=== PATIENT | male | born 1965 | race Caucasian/White ===

== ENCOUNTER 2022-01-31 16:58 | Inpatient (IN) | payer OTHER, SELFPAY ==
[2022-01-31 16:59] VITALS: BP 154/96; PULSE 80; RESP 14; TEMP 36.3; O2SAT 100; BMI 44.4
--- NOTE | 2022-01-31 17:42 | CT_ITS ---
INDICATION: abscess EXAMINATION: CT Pelvis W/ Contrast Injection TECHNIQUE: Helically acquired images were obtained of the pelvis after IV contrast. A radiation dose optimization technique was used for this scan. IV Contrast dosage and agent: IV 100mL [id number] Oral contrast: None. COMPARISON: None. FINDINGS: Vasculature: Unremarkable GI Tract: Unremarkable Lymphadenopathy: Right inguinal lymphadenopathy measuring up to 2.7 cm. Peritoneum: No ascites. Bladder: Unremarkable Reproductive organs: Right-sided hydrocele. Bones/Soft tissues: There are diffuse degenerative changes of the spine. There is subcutaneous fat stranding and edema in the right inguinal region. No focal fluid collection. CT/Pelvis WITH IV Contrast IMPRESSION: Cellulitis of the right inguinal region with no abscess. Right hydrocele. Electronically Signed: Vincent Alejandro MD at 18:36 EDT ,
--- NOTE | 2022-01-31 17:51 | EX.ED.DYSGE1 ---
HPI <KIAH Hoffmann - Last Filed: 01/31/22 18:47> History of Present Illness Chief Complaint: Abscess Narrative Narrative: 56-year-old male with history of hypertension presents emerged part with abscess to his right upper leg, groin. Patient states 1 week ago he noticed a spot that was draining from his right upper leg, he states that this was from something rubbing on his pants. Over the last 3 to 4 days, patient states that has been draining, the redness has gotten worse to his lower abdomen radiating to his mid abdomen to his suprapubic area. Patient does have drainage from the wound, it is brown, yellow in color. Patient has induration throughout his entire lower right lower abdomen. Cellulitis around the area. PFSH <KIAH Hoffmann - Last Filed: 01/31/22 18:47> [facility] Medical History (Updated 01/31/22 @ 19:24 by Carmen Mosley) CPAP (continuous positive airway pressure) dependence Hypertension Sleep apnea Home Medications amlodipine 2.5 mg tablet 2.5 mg PO DAILY bp 01/31/22 [History Last Taken 01/31/22] carvedilol 12.5 mg tablet 12.5 mg PO BID bp 01/31/22 [History Last Taken 01/31/22] Allergy/AdvReac Type Severity Reaction Status Date / Time No Known Allergies Allergy Verified 01/31/22 17:02 Social History Smoking Status: Never smoker ROS <KIAH Hoffmann - Last Filed: 01/31/22 18:47> ROS ED ROS Narrative Constitutional: Negative for fever, chills, weight loss, weakness Eyes: Negative for vision loss, vision change, double vision ENT: Negative for any sore throat, ear pain, congestion Cardiovascular: Negative for any chest pain, tightness, palpitations Respiratory: Negative for any cough, sputum production, hemoptysis, dyspnea, dyspnea on exertion, orthopnea Gastrointestinal: Negative for any abdominal pain, nausea, vomiting, diarrhea, constipation, blood in stool, blood in vomit : Negative for any urinary frequency, dysuria, retention, blood in urine Muscle skeletal: Negative for any muscle joint pain, stiffness, myalgias, arthralgias, neck pain, back pain Neurological: Negative for any headache, syncope, numbness or tingling, dizziness Skin: Negative for any rashes, lumps, itching, abrasions, lacerations. Patient has abscess to the right upper thigh, in the crease of his abdomen. Patient has gross drainage in this area brown to yellow. Patient does have induration and cellulitis around this area, the cellulitis extends through the right lower quadrant of his abdomen to his suprapubic area just above his groin. The area of his right lower abdomen is very indurated, no obvious abscess formation however it is warm to the touch, cellulitic. This appears to be pretty extensive cellulitis to his right lower abdomen, right groin area. Psychiatric: Negative for any depression, anxiety, stress, suicidal ideation, homicidal ideation Hematologic: Negative for any easy bruising, excessive bruising, easy bleeding Allergies: Negative for any eczema, hives, rash EXAM <KIAH Hoffmann - Last Filed: 01/31/22 18:47> Physical Exam Const Vital Signs: 01/31/22 16:59 01/31/22 18:59 Temperature 97.3 F L 97.2 F L Temperature Source Temporal Temporal Pulse Rate 80 79 Respiratory Rate 14 15 Blood Pressure 154/96 H 144/77 H Blood Pressure Mean 115 99 Pulse Ox 100 98 Oxygen Delivery Method Room Air Room Air <Dr. Jelani Gonzalez DO - Last Filed: 02/01/22 01:04> Physical Exam Const Vital Signs: 01/31/22 16:59 01/31/22 18:59 Temperature 97.3 F L 97.2 F L Temperature Source Temporal Temporal Pulse Rate 80 79 Respiratory Rate 14 15 Blood Pressure 154/96 H 144/77 H Blood Pressure Mean 115 99 Pulse Ox 100 98 Oxygen Delivery Method Room Air Room Air MDM <KIAH Hoffmann - Last Filed: 01/31/22 18:47> [facility] Lab Data Labs: Laboratory Results - last 24 hr 01/31/22 01/31/22 01/31/22 18:07 18:07 18:07 WBC 20.0 H RBC 4.30 L Hgb 13.0 Hct 39.4 L MCV 91.6 MCH 30.2 MCHC 33.0 RDW Std Deviation 47.5 H RDW Coeff of Nathalia 14.1 Plt Count 302 MPV 10.0 Immature Gran % (Auto) 1.600 H Neut % (Auto) 79.5 H Lymph % (Auto) 9.9 L Haines % (Auto) 6.7 Eos % (Auto) 1.7 Baso % (Auto) 0.6 Absolute Neuts (auto) 15.9 H Absolute Lymphs (auto) 1.97 Nucleated RBC % 0 Sodium 134 L Potassium 3.5 Chloride 98 Carbon Dioxide 26.0 Anion Gap 10 BUN 32 H Creatinine 1.22 Estim Creat Clear Calc 82.02 Est GFR (MDRD) Af Amer 79 Est GFR (MDRD) Non-Af 65 BUN/Creatinine Ratio 26.2 H Glucose 103 Hemoglobin A1c Lactic Acid 0.7 Calcium 9.0 01/31/22 19:17 WBC RBC Hgb Hct MCV MCH MCHC RDW Std Deviation RDW Coeff of Nathalia Plt Count MPV Immature Gran % (Auto) Neut % (Auto) Lymph % (Auto) Haines % (Auto) Eos % (Auto) Baso % (Auto) Absolute Neuts (auto) Absolute Lymphs (auto) Nucleated RBC % Sodium Potassium Chloride Carbon Dioxide Anion Gap BUN Creatinine Estim Creat Clear Calc Est GFR (MDRD) Af Amer Est GFR (MDRD) Non-Af BUN/Creatinine Ratio Glucose Hemoglobin A1c 6.1 H Lactic Acid Calcium Radiography Diagnostic Testing: Clinical Impression(s) from Imaging Studies Pelvis CT 01/31/22 17:42 IMPRESSION: Cellulitis of the right inguinal region with no abscess. Right hydrocele. Electronically Signed: Vincent Alejandro MD at 18:36 EDT , Treatment and Re-Evaluation Narrative: Patient presents to the emergency department for abscess to the right upper leg, right abdomen. Patient did receive a septic work-up secondary to the extension of the abscess, cellulitis as well as failing outpatient therapy of Augmentin. Patient does not meet SIRS criteria. Patient will receive basic laboratory values with blood cultures as well as lactic acid, IV Zosyn, vancomycin as well as a CT scan of the pelvis with IV contrast. The patient will need admitted to the hospital for abscess, cellulitis of the right lower abdomen, right upper leg. Patient's laboratory values show a leukocytosis white blood count of 20,000, patient's chemistries were unremarkable. Patient's lactic acid was negative. Patient did receive a CT scan of the pelvis this showed cellulitis to the right inguinal region with no abscess. The patient will need to be admitted to the hospital for cellulitis, abscess to the right inguinal area. He will be admitted to 's service. Patient stable for admission. <Dr. Jelani Gonzalez, DO - Last Filed: 02/01/22 01:04> [facility] MDM Narrative Medical decision making narrative: Attending note: Patient seen and evaluated with environmental services aide. I perform my own [id number] evaluation. I agree with the plan of work-up. Worsening abscess right upper thigh progress over the past week. Started draining. The past 3 days taking Augmentin that was leftover. Redness progressed into the pelvis. Subjective fevers. Denies any diabetes history. Denies any allergies. Exam induration noted upper thigh with exudative drainage there is erythema up in the abdomen into the right pelvis there is no scrotal or penile involvement. Afebrile on arrival vital signs stable. Patient failing Augmentin therapy with progression of cellulitis. Sepsis labs were ordered. He is covered with Zosyn and vancomycin. Wound cultures were obtained from drainage. White count returned at 20. Hemoglobin 13. Lactic acid 0.7. CT scan pelvis obtained negative for any abscess collection. He has a draining abscess clinically. He has cellulitis. Discussed with hospitalist service for admission due to failing outpatient therapy. Lab Data Attestation: I reviewed the patient's lab results. Labs: Laboratory Results - last 24 hr 01/31/22 01/31/22 01/31/22 18:07 18:07 18:07 WBC 20.0 H RBC 4.30 L Hgb 13.0 Hct 39.4 L MCV 91.6 MCH 30.2 MCHC 33.0 RDW Std Deviation 47.5 H RDW Coeff of Nathalia 14.1 Plt Count 302 MPV 10.0 Immature Gran % (Auto) 1.600 H Neut % (Auto) 79.5 H Lymph % (Auto) 9.9 L Haines % (Auto) 6.7 Eos % (Auto) 1.7 Baso % (Auto) 0.6 Absolute Neuts (auto) 15.9 H Absolute Lymphs (auto) 1.97 Nucleated RBC % 0 Sodium 134 L Potassium 3.5 Chloride 98 Carbon Dioxide 26.0 Anion Gap 10 BUN 32 H Creatinine 1.22 Estim Creat Clear Calc 82.02 Est GFR (MDRD) Af Amer 79 Est GFR (MDRD) Non-Af 65 BUN/Creatinine Ratio 26.2 H Glucose 103 Hemoglobin A1c Lactic Acid 0.7 Calcium 9.0 01/31/22 19:17 WBC RBC Hgb Hct MCV MCH MCHC RDW Std Deviation RDW Coeff of Nathalia Plt Count MPV Immature Gran % (Auto) Neut % (Auto) Lymph % (Auto) Haines % (Auto) Eos % (Auto) Baso % (Auto) Absolute Neuts (auto) Absolute Lymphs (auto) Nucleated RBC % Sodium Potassium Chloride Carbon Dioxide Anion Gap BUN Creatinine Estim Creat Clear Calc Est GFR (MDRD) Af Amer Est GFR (MDRD) Non-Af BUN/Creatinine Ratio Glucose Hemoglobin A1c 6.1 H Lactic Acid Calcium Radiography Diagnostic Testing: Clinical Impression(s) from Imaging Studies Pelvis CT 01/31/22 17:42 IMPRESSION: Cellulitis of the right inguinal region with no abscess. Right hydrocele. Electronically Signed: Vincent Alejandro MD at 18:36 EDT , Discharge Plan Dx/Rx/DC Orders Clinical Impression: Abscess of skin and subcutaneous tissue, Cellulitis of groin, right, Leukocytosis Disposition Disposition: Acute Care Hospital [facility] Discharge Date/Time: 01/31/22 19:47
[2022-01-31 18:17] LABS: Absolute Lymphocyte Count 1.97 X10^3/uL (0.83-4.51); Absolute Neutrophil Count 15.9 X10^3/uL (2.0-7.7); Basophil# 0.12 X10^3/uL; Basophil% 0.6 % (0-1); Eosinophil# 0.33 X10^3/uL; Eosinophils% 1.7 % (0-5); Hematocrit 39.4 % (40-54); Lymphocyte # 1.97 X10^3/ul (0.83-4.51); Lymphocyte % 9.9 % (19-41); Mean Corpuscular Hgb 30.2 pg (27.0-32.0); Mean Corpuscular Volume 91.6 fL (80-94); Monocyte# 1.34 X10^3/uL; Monocyte% 6.7 % (0-10); NRBC Flagged by Analyzer 0 % (0-5); Neutrophil # 15.89 X10^3/uL (2.7-7.7); Neutrophil % 79.5 % (47-70); Platelet Count 302 K/mm3 (150-450); RBC Distribution Width CV 14.1 % (11.6-14.6); RBC Distribution Width SD 47.5 fl (35.1-43.9)
[2022-01-31 18:32] LABS: Anion Gap 10 (5-15); BUN 32 mg/dL (7-18); BUN/Creat Ratio 26.2 RATIO (10-20); Chloride 98 mmol/L (98-107); Creatinine, Serum 1.22 mg/dL (0.70-1.30); EST Glomerular Filtration Rate 65 mL/min (>60); Est Glom Filt Rate - Afr Amer 79 mL/min (>60); Estimated Creatinine Clearance 82.02 ml/min; Glucose 103 mg/dL (74-106); Potassium 3.5 mmol/L (3.5-5.1); Sodium Level 134 mmol/L (136-145)
[2022-01-31 18:41] LABS: Lactic Acid 0.7 mmol/L (0.4-1.9)
--- NOTE | 2022-01-31 18:41 | HP.PCM.HOS_ITS ---
HPI - General General Date of Admission: 01/31/22 Date of Service: 01/31/22 Chief Complaint: right thigh and groin abscess HPI Narrative GERDA CHOUDHURY, is a 56 M with a PMh as outlined who presents via the ED on 01/31/2022 with a complaint of redness and swelling in his right upper thigh area, extending into his groin. He says it began as a small spot in his right upper thigh; this gradually grew bigger and started draining; it also became r swapnil, and the redness worsened in the area and extended to his mid abdomen and suprapubic area; he had increased drainage. He denied any fever, chills, nausea, vomiting or diarrhea. Review of systems is otherwise negative. He had some augmentin at home so he took some for 3 days, but it wasnt improving so he decided to come in to the ED Vitals in the ED were BP of 154/96, SC of 80, RR Of 14 and temp of 97.3F. He was saturating at 100% on room air. CBC showed wbc of 20, with Hb of 13 and platelets of 302. Chemistry showed sodium of 134 with potassium of 3.5 and bicarb of 26. Cr was 1.22. Pelvic CT showed cellulitis of hte right inguinal region with no abscess formation. He is being admitted to be managed for cellulitis of the right groin and lower abdomen. [facility] Home Medications amlodipine 01/31/22 [History Last Taken Unknown] metoprolol succinate 01/31/22 [History Last Taken Unknown] Allergy/AdvReac Type Severity Reaction Status Date / Time No Known Allergies Allergy Verified 01/31/22 17:02 Social History Smoking Status: Never smoker ROS Constitutional Constitutional: Denies anorexia, chills, fatigue, fever(s), malaise or weakness Eyes Eyes: Denies change in vision ENT HEENT: Denies dysphagia, ear pain, headache(s), nasal congestion, nasal discharge or sore throat Cardiovascular Cardiovascular: Denies chest pain, dyspnea on exertion, edema, lightheadedness, orthopnea, palpitations, paroxysmal nocturnal dyspnea or rapid heart rate Respiratory/Chest Respiratory/Chest: Denies cough, productive cough, shortness of breath at rest or shortness of breath with exertion Gastrointestinal Gastrointestinal: Denies abdominal pain, constipation, diarrhea, nausea or vomiting Genitourinary Genitourinary: Denies burning urination Musculoskeletal Musculoskeletal: Denies back pain Neurologic Neurologic: Denies confusion Psychiatric Psychiatric: Denies anxiety Endocrine Endocrinology: Denies change in body appearance Hematologic/Lymphatic Hematologic/Lymphatic: Denies anemia Vital Signs Vital Signs Vital Signs: 01/31/22 16:59 Temperature 97.3 F L Temperature Source Temporal Pulse Rate 80 Respiratory Rate 14 Blood Pressure 154/96 H Blood Pressure Mean 115 Pulse Ox 100 Oxygen Delivery Method Room Air Weight Weight: 365 lb Body Mass Index (BMI) 44.4 Physical Exam Const alert, oriented x3 and no apparent distress General Appearance: cooperative HEENT normocephalic, head/scalp atraumatic, hearing grossly normal bilaterally and moist oral mucous membranes Mouth: oral and palatal mucosa normal Eyes PERRL, EOMs intact bilaterally and conjunctivae normal Neck no lymphadenopathy and supple Resp normal respiratory effort, no retractions, no use of accessory muscles and clear to auscultation bilaterally Cardio regular rate, regular rhythm, S1 normal heart sound, S2 normal heart sound and no murmurs GI normal to inspection, nondistended, normoactive bowel sounds, soft to palpation, non-tender and non-distended Extremity normal to inspection Skin Skin Narrative: erythema in right groin, extending to right lower quadrant, with firm induration in right groin, and small open abscess draining thick pus. Neuro oriented x3, CN's II-XII intact bilaterally and moves all extremities Sensorium / Orientation: awake Speech: speech normal Motor Exam: strength 5/5 throughout Psych affect normal Results Lab / Micro Data Result Diagrams: 01/31/22 18:07 01/31/22 18:07 Labs: Laboratory Results - last 24 hr 01/31/22 18:07: WBC 20.0 H, RBC 4.30 L, Hgb 13.0, Hct 39.4 L, MCV 91.6, MCH 30.2, MCHC 33.0, RDW Std Deviation 47.5 H, RDW Coeff of Nathalia 14.1, Plt Count 302, MPV 10.0, Immature Gran % (Auto) 1.600 H, Neut % (Auto) 79.5 H, Lymph % (Auto) 9.9 L, [place] % (Auto) 6.7, Eos % (Auto) 1.7, Baso % (Auto) 0.6, Absolute Neuts (auto) 15.9 H, Absolute Lymphs (auto) 1.97, Nucleated RBC % 0 01/31/22 18:07: Sodium 134 L, Potassium 3.5, Chloride 98, Carbon Dioxide 26.0, Anion Gap 10, BUN 32 H, Creatinine 1.22, Estim Creat Clear Calc 82.02, Est GFR (MDRD) Af Amer 79, Est GFR (MDRD) Non-Af 65, BUN/Creatinine Ratio 26.2 H, Glucose 103, Calcium 9.[address] 01/31/22 17:42 IMPRESSION: Cellulitis of the right inguinal region with no abscess. Right hydrocele. Electronically Signed: Vincent Alejandro MD at 18:36 EDT , Assessment & Plan Assessment/Plan (1) Abscess of skin and subcutaneous tissue: (2) Cellulitis of groin, right: PLAN: Plan #Cellulitis of the right groin and lower abdominal wall with abscess formation * admit to med surg * wbc is elevated at 20 * CT of hte pelvis with IV contrast showed cellulitis of hte right groin with no evidence of abscess formation * get blood and wound cultures * started on IV vancomycin and zosyn; will continue * hydrate gently with IVF * PO tylenol, pO oxycodone and IV morphine prn * consult wound care nurse * #Hypertension; on amlodipine and metoprolol. IV hydralazine prn DVT prophylaxis; lovenox Charges/Coding Visit Charges Inpatient E&M: 46223 Init Hosp L3
[2022-01-31 18:59] VITALS: BP 144/77; PULSE 79; RESP 15; TEMP 36.2; O2SAT 98
[2022-01-31 20:04] VITALS: BMI 43.2
[2022-01-31 20:07] VITALS: BP 148/78; PULSE 78; RESP 16; TEMP 36.8; O2SAT 98
[2022-01-31 20:12] LABS: Hemoglobin A1c 6.1 % (3.8-5.6)
--- NOTE | 2022-01-31 20:19 | PCM.RX.CS ---
Consult Pharmacy has been consulted to manage selected antiobiotic: Vancomycin Type of Consult: New start Prior Doses of Antibiotics Received/Current Regimen: Medications Discontinued Medications Vancomycin HCl 2,000 mg/ (Sodium Chloride) 540 mls @ 250 mls/hr IV X1 ONE Stop: 01/31/22 19:56 Last Admin: 01/31/22 19:15 Dose: 250 mls/hr Labs: Sodium 134 mmol/L (136-145) L 01/31/22 18:07 Potassium 3.5 mmol/L (3.5-5.1) 01/31/22 18:07 Chloride 98 mmol/L (98-107) 01/31/22 18:07 Carbon Dioxide 26.0 mmol/L (21.0-32.0) 01/31/22 18:07 Anion Gap 10 (5-15) 01/31/22 18:07 BUN 32 mg/dL (7-18) H 01/31/22 18:07 Creatinine 1.22 mg/dL (0.70-1.30) 01/31/22 18:07 Est GFR (MDRD) Af Amer 79 mL/min (>60) 01/31/22 18:07 Est GFR (MDRD) Non-Af 65 mL/min (>60) 01/31/22 18:07 BUN/Creatinine Ratio 26.2 RATIO (10-20) H 01/31/22 18:07 Glucose 103 mg/dL (74-106) 01/31/22 18:07 Weight used for dosin kg Estimated Creatinine Clearance: 82 Goal Trough: 15-20 mcg/mL Pharmacy Plan for Drug Dosinmg given in ED, 2000mg IV q12h with trough prior to 4th dose per policy. Pharmacy Service will continue to monitor and adjust dosing as required. Follow-Up Labs: Trough Vancomycin - 02/02 @ 0700
[2022-01-31] MEDS: 0.9% Normal Saline 1,000 ML 125 ML IV (22:10)
[2022-02-01 01:04] VITALS: O2SAT 98
[2022-02-01 05:00] VITALS: BP 144/95; PULSE 69; RESP 18; TEMP 36.6; O2SAT 98
[2022-02-01] MEDS: 0.9% Normal Saline 1,000 ML 125 ML IV (06:02)
--- NOTE | 2022-02-01 07:13 | PN.HOSP_ITS ---
Subjective Subjective Seen and examined. No fever. Heart rate and blood pressure in acceptable range. Objective Data Objective Data Vital Signs: Vital Signs Temp Pulse Resp BP Pulse Ox O2 Del Method 97.9 F 69 18 144/95 H 98 Room Air 02/01/22 05:00 02/01/22 05:00 02/01/22 05:00 02/01/22 05:00 02/01/22 05:00 02/01/22 05:00 Oxygen Delivery Method Room Air Weight: 355 lb 2.635 oz Body Mass Index (BMI) 43.2 Intake & Output: Intake and Output for Last 24 Hours 01/30/22 01/31/22 02/01/22 23:59 23:59 23:59 Intake Total 590 / 590 1033.33 / 1033.33 Balance 590 / 590 1033.33 / 1033.33 Lab / Micro Data Result Diagrams: 01/31/22 18:07 01/31/22 18:07 Labs: Laboratory Results - last 24 hr 01/31/22 18:07: WBC 20.0 H, RBC 4.30 L, Hgb 13.0, Hct 39.4 L, MCV 91.6, MCH 30.2, MCHC 33.0, RDW Std Deviation 47.5 H, RDW Coeff of Nathalia 14.1, Plt Count 302, MPV 10.0, Immature Gran % (Auto) 1.600 H, Neut % (Auto) 79.5 H, Lymph % (Auto) 9.9 L, [place] % (Auto) 6.7, Eos % (Auto) 1.7, Baso % (Auto) 0.6, Absolute Neuts (auto) 15.9 H, Absolute Lymphs (auto) 1.97, Nucleated RBC % 0 01/31/22 18:07: Sodium 134 L, Potassium 3.5, Chloride 98, Carbon Dioxide 26.0, Anion Gap 10, BUN 32 H, Creatinine 1.22, Estim Creat Clear Calc 82.02, Est GFR (MDRD) Af Amer 79, Est GFR (MDRD) Non-Af 65, BUN/Creatinine Ratio 26.2 H, Glucose 103, Calcium 9.0 01/31/22 18:07: Lactic Acid 0.7 01/31/22 19:17: Hemoglobin A1c 6.1 H Radiography Diagnostic Testing: Radiology Impression Pelvis CT 01/31/22 17:42 IMPRESSION: Cellulitis of the right inguinal region with no abscess. Right hydrocele. Electronically Signed: Vincent Alejandro MD at 18:36 EDT , Assessment & Plan Assessment/Plan (1) Abscess of skin and subcutaneous tissue: (2) Cellulitis of groin, right: PLAN: Plan #Cellulitis of the right groin and lower abdominal wall with abscess formation * admit to med surg * wbc is elevated at 20 * CT of hte pelvis with IV contrast showed cellulitis of hte right groin with no evidence of abscess formation * get blood and wound cultures * started on IV vancomycin and zosyn; will continue * hydrate gently with IVF * PO tylenol, pO oxycodone and IV morphine prn * consult wound care nurse * #Hypertension; on amlodipine and metoprolol. IV hydralazine prn DVT prophylaxis; lovenox
[2022-02-01 07:29] LABS: Absolute Lymphocyte Count 1.74 X10^3/uL (0.83-4.51); Absolute Neutrophil Count 13.1 X10^3/uL (2.0-7.7); Basophil# 0.13 X10^3/uL; Basophil% 0.8 % (0-1); Eosinophil# 0.33 X10^3/uL; Eosinophils% 1.9 % (0-5); Hematocrit 37.3 % (40-54); Hemoglobin 12.5 g/dL (13.0-16.5); Lymphocyte # 1.74 X10^3/ul (0.83-4.51); Lymphocyte % 10.3 % (19-41); Mean Corp Hgb Conc 33.5 g/dL (32-36); Mean Corpuscular Hgb 30.9 pg (27.0-32.0); Mean Corpuscular Volume 92.3 fL (80-94); Monocyte# 1.15 X10^3/uL; Monocyte% 6.8 % (0-10); NRBC Flagged by Analyzer 0 % (0-5); Neutrophil # 13.06 X10^3/uL (2.7-7.7); Neutrophil % 77.1 % (47-70); Platelet Count 312 K/mm3 (150-450); RBC Distribution Width CV 14.1 % (11.6-14.6); RBC Distribution Width SD 48.3 fl (35.1-43.9); Red Blood Count 4.04 M/mm3 (4.6-6.2); White Blood Count 16.9 K/mm3 (4.4-11.0)
[2022-02-01 07:48] LABS: Anion Gap 8 (5-15); BUN 21 mg/dL (7-18); BUN/Creat Ratio 21.1 RATIO (10-20); Calcium,Total 8.4 mg/dL (8.5-10.1); Chloride 100 mmol/L (98-107); EST Glomerular Filtration Rate 82 mL/min (>60); Est Glom Filt Rate - Afr Amer 99 mL/min (>60); Estimated Creatinine Clearance 100.06 ml/min; Glucose 106 mg/dL (74-106); Potassium 3.8 mmol/L (3.5-5.1); Sodium Level 133 mmol/L (136-145)
[2022-02-01 08:15] VITALS: BP 141/84; PULSE 82; RESP 16; TEMP 36.6; O2SAT 97
[2022-02-01] MEDS: Enoxaparin 40 MG/0.4 ML Syringe SC (08:57)
[2022-02-01] MEDS: Carvedilol 12.5 MG Tablet PO (08:58)
[2022-02-01] MEDS: Potassium Chloride Oral Tablet 20 MEQ 40 MEQ PO ×2 (08:58→11:05)
[2022-02-01] MEDS: amLODIPine 2.5 MG Tablet PO (08:58)
--- NOTE | 2022-02-01 11:12 | WOUNDNOTE ---
wound photo: right groin
--- NOTE | 2022-02-01 12:25 | PCM.PN.HOSP ---
Documented by User: Sandra Desai NP, LEAD ETL DEVELOPER-C 02/01/22 12:32 Subjective Subjective Patient seen and examined. Denies fever, chills. Reports groin discomfort. Feels slightly improved. Objective Data Objective Data Vital Signs: Vital Signs Temp Pulse Resp BP Pulse Ox O2 Del Method 97.8 F 82 16 141/84 H 97 Room Air 02/01/22 08:15 02/01/22 08:15 02/01/22 08:15 02/01/22 08:15 02/01/22 08:15 02/01/22 08:15 Oxygen Delivery Method Room Air Weight: 355 lb 2.635 oz Body Mass Index (BMI) 43.2 Intake & Output: Intake and Output for Last 24 Hours 01/30/22 01/31/22 02/01/22 23:59 23:59 23:59 Intake Total 590 / 590 1623.33 / 1623.33 Balance 590 / 590 1623.33 / 1623.33 Lab / Micro Data Result Diagrams: 02/01/22 06:20 02/01/22 06:20 Labs: Laboratory Results - last 24 hr 01/31/22 18:07: WBC 20.0 H, RBC 4.30 L, Hgb 13.0, Hct 39.4 L, MCV 91.6, MCH 30.2, MCHC 33.0, RDW Std Deviation 47.5 H, RDW Coeff of Nathalia 14.1, Plt Count 302, MPV 10.0, Immature Gran % (Auto) 1.600 H, Neut % (Auto) 79.5 H, Lymph % (Auto) 9.9 L, [place] % (Auto) 6.7, Eos % (Auto) 1.7, Baso % (Auto) 0.6, Absolute Neuts (auto) 15.9 H, Absolute Lymphs (auto) 1.97, Nucleated RBC % 0 01/31/22 18:07: Sodium 134 L, Potassium 3.5, Chloride 98, Carbon Dioxide 26.0, Anion Gap 10, BUN 32 H, Creatinine 1.22, Estim Creat Clear Calc 82.02, Est GFR (MDRD) Af Amer 79, Est GFR (MDRD) Non-Af 65, BUN/Creatinine Ratio 26.2 H, Glucose 103, Calcium 9.0 01/31/22 18:07: Lactic Acid 0.7 01/31/22 19:17: Hemoglobin A1c 6.1 H 02/01/22 06:20: WBC 16.9 H, RBC 4.04 L, Hgb 12.5 L, Hct 37.3 L, MCV 92.3, MCH 30.9, MCHC 33.5, RDW Std Deviation 48.3 H, RDW Coeff of Nathalia 14.1, Plt Count 312, MPV 10.0, Immature Gran % (Auto) 3.100 H, Neut % (Auto) 77.1 H, Lymph % (Auto) 10.3 L, [place] % (Auto) 6.8, Eos % (Auto) 1.9, Baso % (Auto) 0.8, Absolute Neuts (auto) 13.1 H, Absolute Lymphs (auto) 1.74, Nucleated RBC % 0 02/01/22 06:20: Sodium 133 L, Potassium 3.8, Chloride 100, Carbon Dioxide 25.0, Anion Gap 8, BUN 21 H, Creatinine 1.00, Estim Creat Clear Calc 100.06, Est GFR (MDRD) Af Amer 99, Est GFR (MDRD) Non-Af 82, BUN/Creatinine Ratio 21.1 H, Glucose 106, Calcium 8.4 L Micro: Microbiology 01/31/22 18:05 Wound Abcess - Groin Wound Culture - Preliminary Staphylococcus aureus Radiography Diagnostic Testing: Radiology Impression Pelvis CT 01/31/22 17:42 IMPRESSION: Cellulitis of the right inguinal region with no abscess. Right hydrocele. Electronically Signed: Vincent Alejandro MD at 18:36 EDT , Physical Exam Const alert and oriented x3 Nutritional Appearance: obese HEENT normocephalic and moist oral mucous membranes Eyes PERRL, EOMs intact bilaterally and conjunctivae normal Neck no lymphadenopathy Resp normal respiratory effort and clear to auscultation bilaterally Cardio regular rate, regular rhythm and no murmurs Peripheral Pulses: pulses 2+ throughout GI normal to inspection, nondistended, normoactive bowel sounds, non-tender and non-distended Extremity normal to inspection Skin no rashes or lesions noted Skin Narrative: Right groin/pelvis erythema, warmth. Appears improved from markings. Lesions: no lesions Rashes: no rashes Trauma: no lacerations or abrasions Neuro CN's II-XII intact bilaterally, no focal motor deficits, no sensory deficits noted and deep tendon reflexes 2+ bilaterally Psych mental status grossly normal and affect normal Assessment & Plan Assessment/Plan (1) Cellulitis of groin, right: PLAN: Plan 1. Right inguinal cellulitis, failed outpatient treatment with oral therapy-CT without abscess. Continue IV Zosyn and IV vancomycin. Blood culture pending. Wound culture growing staph aureus. Final pending. 2. Prediabetes-hemoglobin A1c 6.1%. 3. Morbid obesity-encouraged diet and lifestyle modifications. 4. Hypertension-stable, continue amlodipine, carvedilol. DVT prophylaxis- Lovenox sc This patient was seen by KIAH Peirre under the supervision of Dr. Thomson. Time spent examining patient, reviewing data and subsequent management of care: 16 minutes Documented by User: Dr. Francisco J Thomson MD 02/01/22 13:26 Subjective Subjective Patient seen and examined. Denies fever, chills. Reports groin discomfort. Feels slightly improved. Seen and examined. No fever. Heart rate and blood pressure in acceptable range. Objective Data Lab / Micro Data Result Diagrams: 02/01/22 06:20 02/01/22 06:20 Physical Exam Narrative Physical exam General: Alert, Oriented x3, Cooperative, morbid obesity BMI 43.2 kg/m? HEENT: Atraumatic, PERRLA, EOMI, Normocephalic Oral: No Gingival or Mucosal Lesions/ Ulcerations. Deep oropharyngeal could not be clearly visualized. Neck: Supple, No JVD, Negative Carotid Bruits Lungs: Air entry diminished in bilateral lung bases. No crepitation/rhonchi Cardiovascular: Regular rate, Regular Rhythm, Normal S1, Normal S2, No murmurs Abdomen: Bowel Sounds Present, Soft, Non Tender, Non-Distended : Large abdominal fat and panniculus. No acute burning micturition/dysuria or new LUTS. No renal angle or suprapubic tenderness. Extremities: No edema, Capillary Refill Less than 3 Seconds Skin: Erythematous rash over the anterior medial aspect of right thigh. Purulent discharge from base of hair follicle with surrounding tenderness and induration and inflammation. Bilateral lower legs chronic grayish discoloration of both lower legs suggestive of venous hypertension Musculoskeletal: No Tenderness to Palpation of Joints or Extremities Neurological: Cranial nerves II-XII grossly intact, DTR 2+/4 and Symmetrical, Neuro grossly intact Psych/Mental Status: Normal Affect, Appropriate. Assessment & Plan Assessment/Plan (1) Cellulitis of groin, right: PLAN: Plan 1. Right inguinal cellulitis, failed outpatient treatment with oral therapy-CT without abscess. Continue IV Zosyn and IV vancomycin. Blood culture pending. Wound culture growing staph aureus. Final pending. 2. Prediabetes-hemoglobin A1c 6.1%. 3. Morbid obesity-encouraged diet and lifestyle modifications. 4. Hypertension-stable, continue amlodipine, carvedilol. DVT prophylaxis- Lovenox sc This patient was seen by KIAH Pierre under the supervision of Dr. Thomson. Time spent examining patient, reviewing data and subsequent management of care: 16 minutes This patient was seen in conjunction with Sandra MATHIS. I have independently interviewed and examined the patient and reviewed pertinent history, examination findings, laboratory and plan of management. I have reviewed the note and agree with the documented findings with the few additional points. In brief, patient is 56-year-old gentleman, morbidly obese admitted with 1. Right inguinal folliculitis complicated into surrounding cellulitis. CT of the pelvis was done which did not show any deep abscess in subcutaneous or deep fascial planes. On IV Zosyn and vancomycin. Blood cultures are pending. Wound culture growing staph aureus 3+. Patient is venous hypertensive/chronic venous dermatitis changes in both lower legs 2. Prediabetes: A1c 6.1%. 3. Other Comorbidities include hypertension and morbid obesity: Home medications continued I have discussed my assessment with Sandra MATHIS and orders have been reviewed. Clinical Impression(s) from Imaging Studies Pelvis CT 01/31/22 17:42 IMPRESSION: Cellulitis of the right inguinal region with no abscess. Right hydrocele. Electronically Signed: Vincent Alejandro MD at 18:36 EDT , Charges/Coding Visit Charges Inpatient E&M: 75465 Subs Hosp L2
--- NOTE | 2022-02-01 13:05 | NURSING ---
ZOSYN LABEL WOULD NOT SCAN, VERIFIED W/LEANDRA Lee RN
--- NOTE | 2022-02-01 14:34 | CASEMGMT ---
RN DORIS IT APPLICATION SUPPORT ANALYST CM to room to meet with patient for initial transition planning/care coordination assessment. RN DORIS introduced self and role at [facility].? Pt voices understanding and consents to assessment at this time.? Pt sitting up on edge of bed in no distress at this time.? @ bedside. Pt is A/O at this time and answers all questions appropriately.?? Care providers, pharmacy, and demographics verified/updated at this time. PCP:Dr Gilberto Cody Specialists: none Preferred Pharmacy: [facility] [place], [place] Insurance: self-pay Prescription Benefit:?none Living Will/HPOA:?States does not have LW or HCPOA .? Interested in more information but states does not want to talk with SW at this time to complete paperwork.? Pt and given AD paperwork to take home with them to complete on their own, per their request. Provided information on advanced directives and has Social Service rac card with number to call if chooses in the future to utilize [facility] social work for advanced directive completion. LNOK: , [place]. Pt also has a son. Living Arrangements: Lives w/ and her 2 children in bi-level home w/one step to enter. Denies difficulty w/stairs. Independent. Pt and share home mgmt tasks. Transportation:?Pt states drives self and states no transportation concerns at this time.? also drives DME: ?Has a CPAP and pulse ox. HHC/SNF: No hx of either. No needs identified. Pt wishes to return home and states has no concerns with going home at time of discharge.?? CM to follow for any discharge planning/needs.? Pt and voice no further concerns/needs at this time.? Advised them to ask for CM if any further questions/concerns/needs arise.? They voice understanding. PLAN:??Home w/spousal support and discharge plans in place. Laura DEJESUS RN, CM
[2022-02-01 15:00] VITALS: BP 127/76; PULSE 90; RESP 15; TEMP 36.7; O2SAT 96
[2022-02-01] MEDS: 0.9% Saline Lock 10 ML Syringe IV (18:37)
[2022-02-01 20:43] VITALS: BP 152/80; PULSE 76; RESP 18; TEMP 36.8; O2SAT 97
[2022-02-02] VITALS (12 sets, daily range): BP systolic 145–174; BP diastolic 70–110; PULSE 61–79; RESP 12–18; TEMP 36.8–37.4; O2SAT 96–100
[2022-02-02] MEDS: 0.9% Saline Lock 10 ML Syringe IV ×2 (05:47→17:06)
--- NOTE | 2022-02-02 07:34 | NURSING ---
Called lab to remind them of 0630 Vanc trough. It is now 0730 and it has not been drawn. This RN will tell day shift RN to wait for Vanc trough to result before hanging 0700 dose of Vanc.
[2022-02-02 07:51] LABS: Mean Corp Hgb Conc 32.4 g/dL (32-36); Mean Corpuscular Hgb 30.8 pg (27.0-32.0); Mean Corpuscular Volume 95.1 fL (80-94); Mean Platelet Vol. 9.7 fl (6.2-12.0); POSITIVE COUNT YES; POSITIVE MORPHOLOGY YES; Platelet Count 285 K/mm3 (150-450); RBC Distribution Width CV 14.7 % (11.6-14.6); RBC Distribution Width SD 51.8 fl (35.1-43.9); Red Blood Count 3.89 M/mm3 (4.6-6.2); White Blood Count 11.8 K/mm3 (4.4-11.0)
[2022-02-02 07:57] LABS: Differential Indicated MANUAL DIFF
[2022-02-02 08:03] LABS: Anion Gap 4 (5-15); BUN 15 mg/dL (7-18); BUN/Creat Ratio 15.6 RATIO (10-20); Calcium,Total 8.2 mg/dL (8.5-10.1); Chloride 106 mmol/L (98-107); Creatinine, Serum 0.96 mg/dL (0.70-1.30); EST Glomerular Filtration Rate 86 mL/min (>60); Est Glom Filt Rate - Afr Amer 104 mL/min (>60); Estimated Creatinine Clearance 104.23 ml/min; Glucose 111 mg/dL (74-106); Potassium 4.2 mmol/L (3.5-5.1); Sodium Level 137 mmol/L (136-145)
[2022-02-02 08:06] LABS: Vancomycin, Trough Level 10.9 ug/mL (5.0-15.0)
[2022-02-02] MEDS: Carvedilol 12.5 MG Tablet PO (08:43)
[2022-02-02 08:44] LABS: Eosinophil 3 % (0-5); Lymphocyte 11 % (19-41); Metamyelocyte 2 % (0-1); Monocyte 2 % (0-10); Myelocyte 3 % (0-0); Neutrophil-Band 1 % (0-5); Neutrophil-Segmented 78 % (47-70); Platelet Estimate ADEQUATE (ADEQ); Red Cell Morphology NORM C+C NORMAL (NORM C&C); Total Cells Counted 100 (MANUAL DIFF)
[2022-02-02] MEDS: Enoxaparin 40 MG/0.4 ML Syringe SC (08:44)
[2022-02-02] MEDS: amLODIPine 2.5 MG Tablet PO (08:44)
--- NOTE | 2022-02-02 09:24 | PCM.RX.CS ---
Consult Type of Consult: Follow-up Suspected Infection: Skin/Soft tissue - Cellulitis Labs: Sodium 137 mmol/L (136-145) 02/02/22 07:12 Potassium 4.2 mmol/L (3.5-5.1) 02/02/22 07:12 Chloride 106 mmol/L (98-107) 02/02/22 07:12 Carbon Dioxide 27.0 mmol/L (21.0-32.0) 02/02/22 07:12 Anion Gap 4 (5-15) L 02/02/22 07:12 BUN 15 mg/dL (7-18) 02/02/22 07:12 Creatinine 0.96 mg/dL (0.70-1.30) 02/02/22 07:12 Est GFR (MDRD) Af Amer 104 mL/min (>60) 02/02/22 07:12 Est GFR (MDRD) Non-Af 86 mL/min (>60) 02/02/22 07:12 BUN/Creatinine Ratio 15.6 RATIO (10-20) 02/02/22 07:12 Glucose 111 mg/dL (74-106) H 02/02/22 07:12 Vancomycin Trough 10.9 ug/mL (5.0-15.0) 02/02/22 06:15 Microbiology: Microbiology 01/31/22 18:05 Wound Abcess - Groin Gram Stain - Final 01/31/22 18:05 Wound Abcess - Groin Wound Culture - Preliminary Staphylococcus aureus Goal Trough: 15-20 mcg/mL Pharmacy Plan for Drug Dosing: VANCOMYCIN LEVEL RECEIVED Current Vancomycin Dose: 2000mg Q12H Number of Doses Received: 3 Vancomycin Level: 10.9 Hours Since Last Dose: 11.75 Renal Function: sCr 0.96 and CrCl > 100 mL/min Renal Function Trend: stable Lab/Micro: Wound culture = staphylococcus aureus (awaiting sensitivities) and blood cultures pending Vancomycin Plan/Comments: Adjust Vancomycin dosing regimen to 1750mg Q8H to start at 1700 02/02/22. Pt also on Zosyn Q8H empirically. Pending Level: Vancomycin trough @ 1630 02/03/22 Pharmacy Service will continue to monitor and adjust dosing as required. Labs to be done on [date and time ordered]: Vancomycin trough @ 1630 02/03/22
--- NOTE | 2022-02-02 10:08 | PN.HOSP_ITS ---
Documented by User: Sandra Desai [employer] TEACHING [employer]AD[employer] AND [employer] TEACHER, HOME TEACHING [employer]ADES 7 AND 8 TEACHER-C 02/02/22 10:42 Subjective Subjective Patient seen and examined. Reports improved redness and discomfort in the right inguinal area. Increased drainage. Denies fever, chills. Objective Data Objective Data Vital Signs: Vital Signs Temp Pulse Resp BP Pulse Ox O2 Del Method 98.4 F 65 18 145/70 H 98 CPAP 02/02/22 04:10 02/02/22 04:10 02/02/22 04:10 02/02/22 04:10 02/02/22 04:10 02/02/22 04:10 Oxygen Delivery Method CPAP Weight: 355 lb 2.635 oz Body Mass Index (BMI) 43.2 Intake & Output: Intake and Output for Last 24 Hours 01/31/22 02/01/22 02/02/22 23:59 23:59 23:59 Intake Total 590 / 590 3213.33 / 3213.33 50 / 50 Balance 590 / 590 3213.33 / 3213.33 50 / 50 Lab / Micro Data Result Diagrams: 02/02/22 07:12 02/02/22 07:12 Labs: Laboratory Results - last 24 hr 02/02/22 06:15: Vancomycin Trough 10.9 02/02/22 07:12: WBC 11.8 H, RBC 3.89 L, Hgb 12.0 L, Hct 37.0 L, MCV 95.1 H, MCH 30.8, MCHC 32.4, RDW Std Deviation 51.8 H, RDW Coeff of Nathalai 14.7 H, Plt Count 285, MPV 9.7, Neut % (Auto) Not Reportable, Total Counted 100, Neutrophils % (Manual) 78 H, Band Neutrophils % 1, Lymphocytes % (Manual) 11 L, Monocytes % (Manual) 2, Eosinophils % (Manual) 3, Metamyelocytes % 2 H, Myelocytes % 3 H, Diff Path Review May , Platelet Estimate ADEQUATE, RBC Morphology NORM C+C 02/02/22 07:12: Sodium 137, Potassium 4.2, Chloride 106, Carbon Dioxide 27.0, Anion Gap 4 L, BUN 15, Creatinine 0.96, Estim Creat Clear Calc 104.23, Est GFR (MDRD) Af Amer 104, Est GFR (MDRD) Non-Af 86, BUN/Creatinine Ratio 15.6, Glucose 111 H, Calcium 8.2 L Micro: Microbiology 01/31/22 18:05 Wound Abcess - Groin Gram Stain - Final 01/31/22 18:05 Wound Abcess - Groin Wound Culture - Final Meth. resistant Staph. aureus Physical Exam Const alert, oriented x3 and no apparent distress Nutritional Appearance: obese HEENT normocephalic and moist oral mucous membranes Eyes PERRL, EOMs intact bilaterally and conjunctivae normal Neck no lymphadenopathy Resp normal respiratory effort and clear to auscultation bilaterally Cardio regular rate, regular rhythm and no murmurs Peripheral Pulses: pulses 2+ throughout GI normal to inspection, nondistended, normoactive bowel sounds, non-tender and non-distended Extremity normal to inspection Skin no rashes or lesions noted Skin Narrative: Right inguinal erythema improving. Right groin area of induration with significant purulent drainage. Lesions: no lesions Rashes: no rashes Trauma: no lacerations or abrasions Neuro CN's II-XII intact bilaterally, no focal motor deficits, no sensory deficits noted and deep tendon reflexes 2+ bilaterally Psych mental status grossly normal and affect normal Assessment & Plan Assessment/Plan (1) Cellulitis of groin, right: PLAN: Plan 1.? Right inguinal cellulitis, failed outpatient treatment with oral therapy-CT without abscess.? Blood culture pending.? Wound culture growing MRSA.?Right groin with indurated area/drainage. Consult surgery for evaluation. DC IV Zosyn. Continue IV vancomycin. 2. Prediabetes-hemoglobin A1c 6.1%. Carb control diet. 3. Morbid obesity-encouraged diet and lifestyle modifications. 4. Hypertension-stable, continue amlodipine, carvedilol. DVT prophylaxis- Lovenox sc This patient was seen by Sandra Desai NP-C under the supervision of Dr. Thomson. Time spent examining patient, reviewing data and subsequent management of care: 13 minutes Documented by User: Dr. Francisco J Thomson MD 02/02/22 12:38 Subjective Subjective Patient seen and examined. Reports improved redness and discomfort in the right inguinal area. Increased drainage. Denies fever, chills. Seen and examined. Patient redness and discomfort is improved but still drainage from here base hair follicle. I called surgeon Dr. Wheeler and requested the consult. Objective Data Lab / Micro Data Result Diagrams: 02/02/22 07:12 02/02/22 07:12 Physical Exam Narrative Seen and examined. General: Alert, Oriented x3, Cooperative, morbid obesity BMI 43.2 kg/m? HEENT: Atraumatic, PERRLA, EOMI, Normocephalic Oral: No Gingival or Mucosal Lesions/ Ulcerations.? Deep oropharyngeal could not be clearly visualized. Neck: Supple, No JVD, Negative Carotid Bruits Lungs:? Air entry diminished in bilateral lung bases.? No crepitation/rhonchi Cardiovascular: Regular rate, Regular Rhythm, Normal S1, Normal S2, No murmurs Abdomen: Bowel Sounds Present, Soft, Non Tender, Non-Distended : Large abdominal fat and panniculus. No acute burning micturition/dysuria or new LUTS.? No renal angle or suprapubic tenderness. Extremities: No edema, Capillary Refill Less than 3 Seconds Skin: Improving erythematous rash over anterior medial aspect of right thigh. Purulent discharge from base of hair follicle with surrounding tenderness and induration and inflammation. Bedside a small incision and drainage was done by surgeon.? Bilateral lower legs chronic grayish discoloration of both lower legs suggestive of venous hypertension Musculoskeletal: No Tenderness to Palpation of Joints or Extremities Neurological: Cranial nerves II-XII grossly intact, DTR? 2+/4 and Symmetrical, Neuro grossly intact Psych/Mental Status: Normal Affect, Appropriate. Assessment & Plan Assessment/Plan (1) Cellulitis of groin, right: PLAN: Plan 1.? Right inguinal cellulitis, failed outpatient treatment with oral therapy-CT without abscess.? Blood culture pending.? Wound culture growing MRSA.?Right groin with indurated area/drainage. Consult surgery for evaluation. DC IV Zosyn. Continue IV vancomycin. 2. Prediabetes-hemoglobin A1c 6.1%. Carb control diet. 3. Morbid obesity-encouraged diet and lifestyle modifications. 4. Hypertension-stable, continue amlodipine, carvedilol. DVT prophylaxis- Lovenox sc This patient was seen by Sandra Lloyd, HOME TEACH[employer]AD[employer] 7 AND 8 TEACHER-C under the supervision of Dr. Thomson. Time spent examining patient, reviewing data and subsequent management of care: 13 minutes In brief, patient is 56-year-old gentleman, morbidly obese admitted with 1.? Right inguinal folliculitis complicated into surrounding cellulitis.? CT of the pelvis was done which did not show any deep abscess in subcutaneous or deep fascial planes.? Initially started on IV Zosyn and vancomycin.? Blood cultures are pending.? Wound culture growing MRSA 3+. IV Zosyn discontinued but vancomycin continued.? Seen by surgeon and bedside is small I&D. Patient is venous hypertensive/chronic venous dermatitis changes in both lower legs 2.? Prediabetes: A1c 6.1%. Carb controlled diet. 3.? Other Comorbidities include hypertension and? morbid obesity: Home medications continued I have discussed my assessment with Sandra MATHIS and orders have been reviewed. Charges/Coding Visit Charges Inpatient E&M: 94076 Subs Hosp L2
--- NOTE | 2022-02-02 11:05 | EX.PCM.CON.S ---
Assessment & Plan Assessment/Plan (1) Abscess of skin and subcutaneous tissue: PLAN: I have offered incision and drainage of potential areas of abscesses as described above. However, patient will have to arrange for wound dressing changes (in the future - on an almost daily basis) and follow up, as he lives an hour away from this hospital. I will put a referral into the wound healing clinic as an alternative. I have explained the risks of the procedure, including but not limited to: infection, bleeding, scar tissue, injury to any blood vessels/nerves, cosmetic deformity, need for further drainage, nonresolution of infection, etc. - patient understands and wishes to proceed. patient interested in going home, will proceed with above today. To be done at bedside with IV conscious sedation and local anesthetic HPI Consult Data Date of Consult: 02/02/22 HPI Narrative Reason for Consultation: I was asked to see this patient for consultation by Dr. Francisco J Thomson HPI Narrative: GERDA CHOUDHURY, is a 56 M who presents with right groin and lower panniculus abscess/cellulitis I was asked to see this patient for consultation by Dr. Francisco J Thomson - patient is an inpatient at [facility]. The patient presents with several days history of right groin pain and skin erythema. He had some Augumentin at home, so he took it. The infection worsened so he presented to [facility] ED. Findings by CT scan of localized cellulitis (no abscess seen). Patient had leukocytosis of 20K. He was admitted to the hospital for IV antibiotics. CT scan results: FINDINGS: Vasculature: Unremarkable GI Tract: Unremarkable Lymphadenopathy: Right inguinal lymphadenopathy measuring up to 2.7 cm. Peritoneum: No ascites. Bladder: Unremarkable Reproductive organs: Right-sided hydrocele. Bones/Soft tissues: There are diffuse degenerative changes of the spine. There is subcutaneous fat stranding and edema in the right inguinal region. No focal fluid collection. CT/Pelvis WITH IV Contrast IMPRESSION: ? Cellulitis of the right inguinal region with no abscess. ? Right hydrocele. ? [facility] Medical History CPAP (continuous positive airway pressure) dependence Hypertension Sleep apnea Home Medications amlodipine 2.5 mg tablet 2.5 mg PO DAILY bp 01/31/22 [History Last Taken 01/31/22] carvedilol 12.5 mg tablet 12.5 mg PO BID bp 01/31/22 [History Last Taken 01/31/22] Allergy/AdvReac Type Severity Reaction Status Date / Time No Known Allergies Allergy Verified 01/31/22 17:02 Social History Smoking Status: Never smoker ROS Constitutional Constitutional: Denies anorexia, fever(s) or weight loss Respiratory/Chest Respiratory/Chest: Denies productive cough or wheezing Gastrointestinal Gastrointestinal: Denies coffee ground emesis or vomiting Genitourinary Genitourinary: Denies hematuria Musculoskeletal Musculoskeletal: Denies abnormal gait Integumentary Integumentary: Denies jaundice Neurologic Neurologic: Denies abnormal gait or loss of vision Physical Exam Const alert and oriented x3 Constitutional Narrative: Morbidly obese WM in no apparent distress General Appearance: cooperative HEENT normocephalic Eyes Eyes Narrative: sclera clear Neck supple Resp normal respiratory effort Effort and Inspection: able to speak in complete sentences GI GI Narrative: truncal obesity with large panniculus and rectus diastasis Skin Skin Narrative: right lower groin area with intertrigo, as well as inferior to panniculus area draining lesion of upper right thigh areas of induration x 2 of lower panniculus area on right side Neuro Neuro Narrative: non focal Psych affect normal Medical Records Data Attestation: I reviewed the patient's medical records Lab / Micro Data Attestation: I reviewed the patient's lab results. Result Diagrams: 02/02/22 07:12 02/02/22 07:12 Labs: Laboratory Results - last 24 hr 02/02/22 06:15: Vancomycin Trough 10.9 02/02/22 07:12: WBC 11.8 H, RBC 3.89 L, Hgb 12.0 L, Hct 37.0 L, MCV 95.1 H, MCH 30.8, MCHC 32.4, RDW Std Deviation 51.8 H, RDW Coeff of Nathalia 14.7 H, Plt Count 285, MPV 9.7, Neut % (Auto) Not Reportable, Total Counted 100, Neutrophils % (Manual) 78 H, Band Neutrophils % 1, Lymphocytes % (Manual) 11 L, Monocytes % (Manual) 2, Eosinophils % (Manual) 3, Metamyelocytes % 2 H, Myelocytes % 3 H, Diff Path Review May foll, Platelet Estimate ADEQUATE, RBC Morphology NORM C+C 02/02/22 07:12: Sodium 137, Potassium 4.2, Chloride 106, Carbon Dioxide 27.0, Anion Gap 4 L, BUN 15, Creatinine 0.96, Estim Creat Clear Calc 104.23, Est GFR (MDRD) Af Amer 104, Est GFR (MDRD) Non-Af 86, BUN/Creatinine Ratio 15.6, Glucose 111 H, Calcium 8.2 L Micro: Microbiology 01/31/22 18:05 Wound Abcess - Groin Gram Stain - Final 01/31/22 18:05 Wound Abcess - Groin Wound Culture - Final Meth. resistant Staph. aureus
[2022-02-02] MEDS: fentaNYL 100 MCG/2 ML Ampul IV (11:56)
[2022-02-02] MEDS: Midazolam 5 MG/ML Syringe IV (11:57)
[2022-02-02] MEDS: Lidocaine 1% /Epi 1:100 (20ml) 20 ML Vial 30 ML INFILT (12:17)
--- NOTE | 2022-02-02 12:26 | PCM.OPRPT ---
Report of Operation Date of Procedure: 02/02/22 Pre-Operative Diagnosis: upper right thigh abscess Post-Operative Diagnosis: same Surgery/Procedure Performed:: I&D of upper right thigh abscess Description of Surgical Findings:: minimal purulent fluid - MRSA infection Surgeon: Delaney Wheeler Type of Anesthesia: IV Sedation Special Medications: Anesthesia start time: 11:56 Anesthesia given - versed 2.5 mg, fentanyl 50 micrograms Anesthesia end time: 12:19 Specimen's removed: none Drains: none Estimated Blood Loss (mL): < 10 ml Fluids Replaced: none Description of Procedure: After informed consent was given, the patient was supine in his hospital bed. Appropriate time out protocol was followed. Patient was given IV anesthesia by dc. The upper right thigh area at the site of the draining abscess, was then cleansed with betadyne skin cleanser. The skin and subcutaneous tissues were then infiltrated with 1% xylocaine with epinephrine - total of 20 ml was used. A cruciate incision was then made over the draining site. There was minimal purulent fluid that was noted. This wound had already been draining prior to procedure. The abscessed cavity was then opened to its entirety. Hemostasis was controlled by pressure. Loculations of the abscessed cavity were broken down to allow for proper drainage. The wound was then densely packed with gauze. Sterile dressing was then placed over the wound. Patient tolerated procedure and was noted to have stable vital signs throughout the procedure. Complications: none EBL - < 10 ml Procedure Start Time: 12:01 Procedure Stop Time: 12:19 Complications none noted Admit VTE Documentation VTE Present on Admission: Yes VTE Pharm Prophylaxis ordered?: Yes
--- NOTE | 2022-02-02 13:04 | CASEMGMT ---
Mark GIBSON aware that pt self-pay and CM to follow for plan for dressings/changes. Pt lives in [place], [place]. Jeri SAENZ CM
--- NOTE | 2022-02-02 13:50 | CASEMGMT ---
Social Work SW spoke w/pt and as there was some confusion around when pt needs to follow up and self pay status. 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 As per pt and , there was some confusion about when pt needs to follow up and how long he needs to be in the hospital. It was their understanding the surgeon wanted to keep him here so the wound healing nurse could call the wound healing center Friday to make an appt for Friday. As per pt and he is to leave the wound alone until Friday and follow up at the wound healing center Friday. Pt and were not understanding why pt would need to stay here for someone to make them an appointment. Pt states if he needs to stay medically he is fine with staying, but to stay for someone to make an appt did not make sense to them. Pt states he does have an appt Friday already with his PCP, and is willing to come to the wound healing center Friday. Pt's is also willing to assist with the wound care. SW explained that the briefcase sewer may be able to assist in setting up an appointment, they are in agreement with this. We spoke about other options. SW reached out to the CM, she states will leave a message at the [facility] to call her on Friday to set up an appt for pt, and she will follow up w/pt if he is home. SW let pt and know this, gave them the number to the CM if needed. They are in agreement with this. Plan: Home, pt still plans to go to PCP on Friday, and will follow up at appt at [facility] once it is scheduled. is also willing to help with the wound care. SAUMYA Rosario
--- NOTE | 2022-02-02 13:50 | CASEMGMT ---
Addendum entered by Radha Issa 02/02/22 14:02: This RN CM spoke with Dr. Wheeler and she states that pt does not need to be seen in wound clinic until . This RN CM will update this with them when they call on friday. CM to follow. Jeri SAENZ CM Original Note: Per nursing/SW/pt, Dr. Wheeler wants pt to be seen in [facility] wound clinic on 02/06/22. Message left with [facility] wound clinic regarding same and for them to call this RN CM on friday. Mitul MATHIS aware, voices understanding. CM to follow. Jeri SAENZ CM
[2022-02-02 14:55] LABS: Promyelocyte 3 % (0-0)
[2022-02-02 14:56] LABS: Absolute Lymphocyte Count 1.29 X10^3/uL (0.83-4.51); Absolute Neutrophil Count 9.3 X10^3/uL (2.0-7.7); Lymphocyte # 1.29 X10^3/ul (0.83-4.51)
[2022-02-02] MEDS: Loratadine 10 MG Tablet PO (18:23)
[2022-02-02] MEDS: Acetaminophen 325 MG Tablet 650 MG PO (22:30)
[2022-02-03] MEDS: Carvedilol 12.5 MG Tablet PO ×2 (00:20→09:41)
[2022-02-03] MEDS: 0.9% Saline Lock 10 ML Syringe IV (00:23)
[2022-02-03 03:04] VITALS: BP 160/98; PULSE 63; RESP 20; TEMP 36.7; O2SAT 100
[2022-02-03 06:40] LABS: Anion Gap 4 (5-15); BUN 12 mg/dL (7-18); BUN/Creat Ratio 12.2 RATIO (10-20); Calcium,Total 8.4 mg/dL (8.5-10.1); Chloride 107 mmol/L (98-107); Creatinine, Serum 0.99 mg/dL (0.70-1.30); EST Glomerular Filtration Rate 83 mL/min (>60); Est Glom Filt Rate - Afr Amer 101 mL/min (>60); Estimated Creatinine Clearance 101.07 ml/min; Glucose 106 mg/dL (74-106); Potassium 4.1 mmol/L (3.5-5.1); Sodium Level 139 mmol/L (136-145)
[2022-02-03 07:59] VITALS: O2SAT 98
[2022-02-03 09:00] VITALS: BP 131/78; PULSE 88; RESP 18; TEMP 36.6; O2SAT 95
[2022-02-03] MEDS: Enoxaparin 40 MG/0.4 ML Syringe SC (09:41)
[2022-02-03] MEDS: amLODIPine 2.5 MG Tablet PO (09:41)
[2022-02-03] MEDS: Loratadine 10 MG Tablet PO (09:43)
--- NOTE | 2022-02-03 09:52 | DCINST_ITS ---
Discharge Instructions Diet Discharge Diet: Carb Control Diet Activity Discharge Activity: Return to Normal Activity Dressing / Incision Call your doctor if your incision/area has: Continuous Slow Oozing, Sudden Increased Bleeding, Increased Pain/ Swelling, Increased Redness and Foul Smelling Discharge Call your doctor if you observe: Fever of 101 or Higher Follow Up Care Test Results: Test results from this visit will be discussed in further detail at your follow- up appointment, if applicable. Discharge Plan Admission Admit Date/Time: 01/31/22 18:49 Primary Reason for Your Visit: Right inguinal cellulitis Attending Provider: Francisco J Thomson Primary Care Provider: Gilberto Cody Consulting Providers: Jossie Rosario ; Delaney Wheeler Instructions Additional Instructions / Restrictions: Recommended pain control regimen - May take 600 mg ibuprofen (Motrin) and then in 3-4 hours, may take 650 mg acetaminophen (Tylenol), then in 3-4 hours may take 600 mg ibuprofen, then in 3- 4 hours may take 650 mg acetaminophen and so on for 2-3 days If bleeding is noted when you go home, apply firm pressure to the area for at least and hour and reinforce dressing as necessary. If this does not resolve, go to nearest ER. Leave dressings in place. Reinforce if necessary. On Friday, February 06, can soak in tub and then remove dressing, as it will be wet and easier to remove. There may be bleeding occurring. If so, apply clean wash clothe to area and 10 pounds of firm pressure to area for 30 minutes. Then can pack wound lightly with cotton gauze. This will need to be done on a daily basis. It may take 6- 8 weeks or more for the wound to completely heal. When there is no longer a cavity to pack gauze in, can just cover the area with gauze on top. Can follow up with local physician for wound check. Otherwise, can come to [facility] ER, if any problems. Sponge bath only, until at least Friday. Then can shower and have wound packing removed in shower and replaced after your shower. Ice applied to areas of discomfort may help Discharge Orders/Prescriptions Prescriptions: New amlodipine 5 mg tablet 5 mg PO DAILY Qty: 30 0RF sulfamethoxazole-trimethoprim [Bactrim DS] 800-160 mg tablet 1 tab PO BID Qty: 14 0RF Continued carvedilol 12.5 mg tablet 12.5 mg PO BID Label Comments: TAKE 1 TABLET BY MOUTH TWICE DAILY WITH MEALS Discontinued amlodipine 2.5 mg tablet 2.5 mg PO DAILY Label Comments: TAKE 1 TABLET BY MOUTH DAILY Referrals / Follow Up: Gilberto Cody DO [Primary Care Provider] - See Referral Note (as scheduled 02/04/22) Center,Wound [Non-Staff] - See Referral Note ( at wound center. Case management will make appt on Friday and you will be notified) Disposition Disposition (needs filled in before D/C Order can be placed): Home, Self Care
--- NOTE | 2022-02-03 10:08 | DS.PCM_ITS ---
Documented by User: Sandra Desai NP, SITE ADMINISTRATOR-C 02/03/22 10:19 Providers Date of Admission: 01/31/22 Date of Discharge: 02/03/22 Primary Care Physician: Dr. Gilberto Cody, Consultations 01/31/22 20:06 Consult: Onc/Wound/pediatric physiatrist Routine Comment: 02/02/22 09:50 Consult: General Surgery Routine Consulting Provider: Delaney Wheeler Reason for Consult: right groin abscess EMERGENT Consult: No MD Notified: Yes Date Notified: 02/02/22 Time Notified: 10:20 Method of Notification: Verbal Reason For Visit: CELLULITIS OF THE GROIN Diagnosis Discharge Diagnosis (1) Cellulitis of groin, right: Status: Acute Code(s): L03.314 - Cellulitis of groin Medications at Discharge Home Medications carvedilol 12.5 mg tablet 12.5 mg PO BID bp 01/31/22 amlodipine 5 mg tablet 5 mg PO DAILY #30 tabs 02/03/22 sulfamethoxazole 800 mg-trimethoprim 160 mg tablet (Bactrim DS) 1 tab PO BID #14 tabs 02/03/22 Hospital Course Operations None Procedures - (I&D of upper right thigh abscess) Summary of Care Provided Hospital Course: Patient is a 56-year-old male admitted 01/31/2022 due to right thigh and groin abscess. 1.? Right inguinal cellulitis, failed outpatient treatment with oral therapy-CT without abscess however on exam found to have superficial right thigh abscess.? Blood culture with no growth.? Wound culture growing MRSA.? General surgery consulted and patient underwent I&D of upper right thigh abscess. IV vancomycin during admission. Transition to course. Patient will follow-up with wound center next week. Continue to keep area covered until follow-up. Patient has follow-up with PCP 02/04/2022. 2. Prediabetes-hemoglobin A1c 6.1%. Carb control diet. 3. Morbid obesity-encouraged diet and lifestyle modifications. 4. Hypertension-stable, continue amlodipine, carvedilol. Physical Exam Const alert, oriented x3 and no apparent distress Nutritional Appearance: obese HEENT normocephalic and moist oral mucous membranes Eyes PERRL, EOMs intact bilaterally and conjunctivae normal Neck no lymphadenopathy Resp normal respiratory effort and clear to auscultation bilaterally Cardio regular rate, regular rhythm and no murmurs Peripheral Pulses: pulses 2+ throughout GI normal to inspection, nondistended, normoactive bowel sounds, non-tender and non-distended Extremity normal to inspection Skin no rashes or lesions noted Skin Narrative: Right inguinal erythema improving.? Lesions: no lesions Rashes: no rashes Trauma: no lacerations or abrasions Neuro CN's II-XII intact bilaterally, no focal motor deficits, no sensory deficits noted and deep tendon reflexes 2+ bilaterally Psych mental status grossly normal and affect normal Patient seen and examined prior to discharge. Physical assessment as noted above. Patient is stable for discharge with follow up recommendations as noted above. This patient was seen by KIAH Pierre under the supervision of Dr. Thomson. Time spent examining patient, reviewing data and subsequent management of care: 20 minutes Weight / BMI Weight Weight: 355 lb 2.635 oz Body Mass Index (BMI) 43.2 ABG / Lab / Microbiology Data Result Diagrams: 02/02/22 07:12 02/03/22 05:35 Laboratory: Laboratory Results - last 24 hr 02/02/22 07:12: Absolute Neuts (auto) 9.3 H, Absolute Lymphs (auto) 1.29, Promyelocytes % 3 H 02/03/22 05:35: Sodium 139, Potassium 4.1, Chloride 107, Carbon Dioxide 28.0, Anion Gap 4 L, BUN 12, Creatinine 0.99, Estim Creat Clear Calc 101.07, Est GFR (MDRD) Af Amer 101, Est GFR (MDRD) Non-Af 83, BUN/Creatinine Ratio 12.2, Glucose 106, Calcium 8.4 L Microbiology: Microbiology 01/31/22 18:05 Wound Abcess - Groin Gram Stain - Final 01/31/22 18:05 Wound Abcess - Groin Wound Culture - Final Meth. resistant Staph. aureus D/C Instructions Discharge Diet: Carb Control Diet Call your doctor if your incision/area has: Continuous Slow Oozing, Sudden Increased Bleeding, Increased Pain/ Swelling, Increased Redness and Foul Smelling Discharge Call your doctor if you observe: Fever of 101 or Higher Meaningful Use Info Meaningful Use Diagnoses (Choose all that apply): None applicable Discharge Plan Admission Admit Date/Time: 01/31/22 18:49 Primary Reason for Your Visit: Right inguinal cellulitis Attending Provider: Francisco J Thomson Primary Care Provider: Gilberto Cody Consulting Providers: Jossie Rosario ; Delaney Wheeler Instructions Additional Instructions / Restrictions: Recommended pain control regimen - May take 600 mg ibuprofen (Motrin) and then in 3-4 hours, may take 650 mg acetaminophen (Tylenol), then in 3-4 hours may take 600 mg ibuprofen, then in 3- 4 hours may take 650 mg acetaminophen and so on for 2-3 days If bleeding is noted when you go home, apply firm pressure to the area for at least and hour and reinforce dressing as necessary. If this does not resolve, go to nearest ER. Leave dressings in place. Reinforce if necessary. On Friday, February 06, can soak in tub and then remove dressing, as it will be wet and easier to remove. There may be bleeding occurring. If so, apply clean wash clothe to area and 10 pounds of firm pressure to area for 30 minutes. Then can pack wound lightly with cotton gauze. This will need to be done on a daily basis. It may take 6- 8 weeks or more for the wound to completely heal. When there is no longer a cavity to pack gauze in, can just cover the area with gauze on top. Can follow up with local physician for wound check. Otherwise, can come to [facility] ER, if any problems. Sponge bath only, until at least Friday. Then can shower and have wound packing removed in shower and replaced after your shower. Ice applied to areas of discomfort may help Discharge Orders/Prescriptions Prescriptions: New amlodipine 5 mg tablet 5 mg PO DAILY Qty: 30 0RF sulfamethoxazole-trimethoprim [Bactrim DS] 800-160 mg tablet 1 tab PO BID Qty: 14 0RF Continued carvedilol 12.5 mg tablet 12.5 mg PO BID Label Comments: TAKE 1 TABLET BY MOUTH TWICE DAILY WITH MEALS Discontinued amlodipine 2.5 mg tablet 2.5 mg PO DAILY Label Comments: TAKE 1 TABLET BY MOUTH DAILY Referrals / Follow Up: Gilberto Cody DO [Primary Care Provider] - See Referral Note (as scheduled 02/04/22) Center,Wound [Non-Staff] - See Referral Note ( at wound center. Case management will make appt on Friday and you will be notified) Disposition Disposition (needs filled in before D/C Order can be placed): Home, Self Care Documented by User: Dr. Francisco J Thomson MD 02/03/22 12:11 Providers Date of Admission: 01/31/22 Reason For Visit: CELLULITIS OF THE GROIN Diagnosis Discharge Diagnosis (1) Cellulitis of groin, right: Status: Acute Code(s): L03.314 - Cellulitis of groin Medications at Discharge Home Medications carvedilol 12.5 mg tablet 12.5 mg PO BID bp 01/31/22 amlodipine 5 mg tablet 5 mg PO DAILY #30 tabs 02/03/22 sulfamethoxazole 800 mg-trimethoprim 160 mg tablet (Bactrim DS) 1 tab PO BID #14 tabs 02/03/22 Hospital Course Summary of Care Provided Hospital Course: Patient is a 56-year-old male admitted 01/31/2022 due to right thigh and groin abscess. 1.? Right inguinal cellulitis, failed outpatient treatment with oral therapy-CT without abscess however on exam found to have superficial right thigh abscess.? Blood culture with no growth.? Wound culture growing MRSA.? General surgery consulted and patient underwent I&D of upper right thigh abscess. IV vancomycin during admission. Transition to course. Patient will follow-up with wound center next week. Continue to keep area covered until follow-up. Patient has follow-up with PCP 02/04/2022. 2. Prediabetes-hemoglobin A1c 6.1%. Carb control diet. 3. Morbid obesity-encouraged diet and lifestyle modifications. 4. Hypertension-stable, continue amlodipine, carvedilol. This patient was seen in conjunction with SITE ADMINISTRATORSandra. I have independently interviewed and examined the patient and reviewed pertinent history, examination findings, laboratory and plan of management. I have reviewed the note and ag ree with the documented findings with the few additional points. In brief, patient is 56-year-old gentleman, morbidly obese admitted with 1.? Right inguinal folliculitis complicated into surrounding cellulitis due to MRSA.? CT of the pelvis was done which did not show any deep abscess in subcutan eous or deep fascial planes.? Initially started on IV Zosyn and vancomycin.? Blood cultures are pending.? Wound culture growing MRSA 3+.? IV Zosyn discontinued but vancomycin continued.? Seen by surgeon and bedside is small I&D.? Patient is venous hypertensive/chronic venous dermatitis changes in both lower legs 02/03: There was focus of dressing at right groin mainly seropurulent. No bloody discharge. Dressing changed. Patient discharged on Bactrim DS for 7 more days. Patient is followed in wound center on next , 02/07/2022. 2.? Prediabetes: A1c 6.1%.? Carb controlled diet. 3.? Other Comorbidities include hypertension and? morbid obesity: Home medications continued I have discussed my assessment with Sandra MATHIS and orders have been reviewed. Discharge medication reconciliation done. Discharge follow-up instructions completed. Discharge process discussed with the patient and all questions were answered to patient's satisfaction. Total time spent, exact 35 minutes on discharge meds reconciliation, examination, coordination of care with nurses and ancillary staff, review of imaging and blood test and discussion with the patient on follow-up instructions. Physical Exam Const alert, oriented x3 and no apparent distress Nutritional Appearance: obese HEENT normocephalic and moist oral mucous membranes Eyes PERRL, EOMs intact bilaterally and conjunctivae normal Neck no lymphadenopathy Resp normal respiratory effort and clear to auscultation bilaterally Cardio regular rate, regular rhythm and no murmurs Peripheral Pulses: pulses 2+ throughout GI normal to inspection, nondistended, normoactive bowel sounds, non-tender and non-distended Extremity normal to inspection Skin no rashes or lesions noted Skin Narrative: Right inguinal erythema improving.? Lesions: no lesions Rashes: no rashes Trauma: no lacerations or abrasions Neuro CN's II-XII intact bilaterally, no focal motor deficits, no sensory deficits noted and deep tendon reflexes 2+ bilaterally Psych mental status grossly normal and affect normal Patient seen and examined prior to discharge. Physical assessment as noted above. Patient is stable for discharge with follow up recommendations as noted above. This patient was seen by KIAH Pierre under the supervision of Dr. Thomson. Time spent examining patient, reviewing data and subsequent management of care: 20 minutes Physical Exam Narrative Seen and examined. General: Alert, Oriented x3, Cooperative, morbid obesity BMI 43.2 kg/m? HEENT: Atraumatic, PERRLA, EOMI, Normocephalic Oral: No Gingival or Mucosal Lesions/ Ulcerations.? Deep oropharyngeal could not be clearly visualized. Neck: Supple, No JVD, Negative Carotid Bruits Lungs:? Air entry diminished in bilateral lung bases.? No crepitation/rhonchi Cardiovascular: Regular rate, Regular Rhythm, Normal S1, Normal S2, No murmurs Abdomen: Bowel Sounds Present, Soft, Non Tender, Non-Distended : Large abdominal fat and panniculus. No acute burning micturition/dysuria or new LUTS.? No renal angle or suprapubic tenderness. Extremities: No edema, Capillary Refill Less than 3 Seconds Skin: Dressing soaked with seropurulent discharge. Improvement in induration over right groin. Erythematous rash tenderness improved. Status post small incision and drainage was done by surgeon at bedside.? Bilateral lower legs chronic grayish discoloration of both lower legs suggestive of venous hypertension Musculoskeletal: No Tenderness to Palpation of Joints or Extremities Neurological: Cranial nerves II-XII grossly intact, DTR? 2+/4 and Symmetrical, Neuro grossly intact Psych/Mental Status: Normal Affect, Appropriate. ABG / Lab / Microbiology Data Result Diagrams: 02/02/22 07:12 02/03/22 05:35 Discharge Plan Admission Admit Date/Time: 01/31/22 18:49 Primary Reason for Your Visit: Right inguinal cellulitis Attending Provider: Francisco J Thomson Primary Care Provider: Gilberto Cody Consulting Providers: Jossie Rosario ; Delaney Wheeler Instructions Additional Instructions / Restrictions: Recommended pain control regimen - May take 600 mg ibuprofen (Motrin) and then in 3-4 hours, may take 650 mg acetaminophen (Tylenol), then in 3-4 hours may take 600 mg ibuprofen, then in 3- 4 hours may take 650 mg acetaminophen and so on for 2-3 days If bleeding is noted when you go home, apply firm pressure to the area for at least and hour and reinforce dressing as necessary. If this does not resolve, go to nearest ER. Leave dressings in place. Reinforce if necessary. On Friday, February 06, can soak in tub and then remove dressing, as it will be wet and easier to remove. There may be bleeding occurring. If so, apply clean wash clothe to area and 10 pounds of firm pressure to area for 30 minutes. Then can pack wound lightly with cotton gauze. This will need to be done on a daily basis. It may take 6- 8 weeks or more for the wound to completely heal. When there is no longer a cavity to pack gauze in, can just cover the area with gauze on top. Can follow up with local physician for wound check. Otherwise, can come to [facility] ER, if any problems. Sponge bath only, until at least Friday. Then can shower and have wound packing removed in shower and replaced after your shower. Ice applied to areas of discomfort may help Discharge Orders/Prescriptions Prescriptions: New amlodipine 5 mg tablet 5 mg PO DAILY Qty: 30 0RF sulfamethoxazole-trimethoprim [Bactrim DS] 800-160 mg tablet 1 tab PO BID Qty: 14 0RF Continued carvedilol 12.5 mg tablet 12.5 mg PO BID Label Comments: TAKE 1 TABLET BY MOUTH TWICE DAILY WITH MEALS Discontinued amlodipine 2.5 mg tablet 2.5 mg PO DAILY Label Comments: TAKE 1 TABLET BY MOUTH DAILY Referrals / Follow Up: Gilberto Cody DO [Primary Care Provider] - See Referral Note (as scheduled 01/08 02/28) Center,Wound [Non-Staff] - See Referral Note ( at wound center. Case management will make appt on Friday and you will be notified) Disposition Disposition (needs filled in before D/C Order can be placed): Home, Self Care Charges/Coding Visit Charges Inpatient E&M: 69163 Disch Hosp
[2022-02-03] MEDS: oxyCODONE 5 MG Tablet PO (13:05)
--- NOTE | 2022-02-04 08:19 | CASEMGMT ---
Call from [facility] wound center and she states they can see pt 02/07/22 at 1400. She states she will call pt and update with appt. Jeri SAENZ CM
[2022-02-04 15:32] LABS: Pathologist Review Reviewed
== END 2022-02-03 14:45 | disposition home or self-care (01) | DRG 603 ==
LOC: ED 18:47 → MS3 02-01 07:10
PROVIDERS: Nurse Practitioner; Nurse Practitioner Family; Admitting Provider Student in an Organized Health Care Education/Training Program; Emergency Provider Emergency Medicine; PCP Family Medicine; Visit Provider Internal Medicine
DX: L02.415 Cutaneous abscess of right lower limb (principal); L03.311 Cellulitis of abdominal wall; Z68.41 Body mass index [BMI] 40.0-44.9, adult; L03.314 Cellulitis of groin; E66.01 Morbid (severe) obesity due to excess calories; L73.9 Follicular disorder, unspecified; I10 Essential (primary) hypertension; B95.62 Methicillin resistant Staphylococcus aureus infection as the cause of diseases classified elsewhere; R73.03 Prediabetes
CPT/HCPCS: 36415; 72193; 80048; 80202; 83036; 83605; 85025; 87040; 87070; 87077; 87186; 87205; 94660; 94762; 99251; 99284; J7030; J7040; J7050; Q9967; A4216; G0463